=== PATIENT | female | born 1995 ===

== ENCOUNTER 2018-01-01 18:52 | Outpatient (REF) | payer BC, SELFPAY ==
--- NOTE | 2018-01-01 09:25 | PAPFT_PTH ---
PATIENT: RONALD HANEY LOC: [facility]#:[id number] AGE/SX: 22/F ROOM: RE01/01/[address]: Brittney Dobbs : 1995 BED: DIS: 01/01/2018 SPEC #: [id number] RECD: 01/02/18 12:54 STATUS: SHIRA RETrenton #: [id number] PATEL: 01/01/18 09:[address]: Brittney Dobbs DEPT: [facility] Cytology RECD BY: Kimberlee Malik Tissues: 1 - CX/ENDOCX FOR PAP SMEARS Procedures: PAP THIN PREP/UVM Screening Comments: [id number]
[2018-01-03 13:45] LABS: Chlamydia Result Negative; GC Result Negative; Specimen Description CERVICAL
== END 2018-01-01 19:12 ==
LOC: NCHCN 18:52
PROVIDERS: Visit Provider Nurse Practitioner Family
DX: Z00.00 Encounter for general adult medical examination without abnormal findings (principal); Z12.4 Encounter for screening for malignant neoplasm of cervix; Z11.3 Encounter for screening for infections with a predominantly sexual mode of transmission; F41.9 Anxiety disorder, unspecified
CPT/HCPCS: 87491; 87591; 88142

== ENCOUNTER 2019-09-12 17:26 | Emergency (ER) | payer BC, SELFPAY ==
[2019-09-12 17:35] VITALS: BP 132/84; PULSE 68; RESP 16; TEMP 36.6; O2SAT 100
--- NOTE | 2019-09-12 18:22 | W.ED.GENAD ---
Discharge Plan Disposition Patient Disposition: HOME Condition: Stable Discharge Details Chief Complaint: EyeProblem Clinical Impression: Corneal abrasion, left Primary Care Provider: Reg Aviles ED Provider: Anastasiia Irene Home Meds and New Rx's Prescriptions: No Action No Known Home Meds RF: 0 Discharge Instructions Instructions: Corneal Abrasion (ED) Additional Instructions: Apply 1/2 inch ribbon of erythromycin ointment 4 times daily to the left eye for the next 6 days. Alternate tylenol and motrin as needed and directed for pain. Call [facility] at [phone] on Saturday to schedule follow-up appointment for reevaluation. Return to the emergency department at any time if you develop any blurry vision, worsening pain or any other concerns. Discharge Data Discharge Date/Time-TO BE ENTERED AT DEPARTURE: 09/12/19 18:40 Discharge Physician: Anastasiia Irene Medical Decision Making 24-year-old female presents with left eye pain, irritation and foreign body sensation after working on a car at home just prior to arrival. Thinks it may be a piece of dirt, dust or metal. Left eye injected and tearing. No obvious foreign body noted. Corneal abrasion noted at 12 o'clock position in addition to faint fluorescein uptake surrounding most of the cornea except for right lower quadrant. No obvious foreign body noted with full inspection including slit-lamp and eyelid eversion. Tetanus given. L eye flushed with BSS. Erythromycin ointment applied. Patient given erythromycin for home. She is advised to call [facility] Saturday for follow-up. Usual and customary return precautions given prior to discharge. Medical Records Medical records reviewed: Yes I reviewed the patient's medical records. HPI General Mode of arrival: ambulatory. Date/Time Provider Initiated Documentation: 09/12/19 17:42. Limitations to Documentation: no limitations. Information obtained by: patient. HPI Narrative: Pt is a 24yo F who presents to the ED w/ a c/o L eye pain and irritation that started when she was working on a car at home. She thinks she got some dust or dirt in her eye. She attempted to flush with water. She is unsure of her tetanus status. She denies blurry vision, photophobia, headache, dizziness. She does not wear contacts. Related Data Home Medications Medication Instructions Recorded Confirmed Unknown [No Known Home Meds] 09/12/19 09/12/19 Allergies Allergy/AdvReac Type Severity Reaction Status Date / Time No Known Allergies Allergy Unverified 09/12/19 17:35 General Stated Complaint: EyeProblem FRANKO: 4 Review of Systems All systems reviewed & are unremarkable except as noted in HPI and below Constitutional Constitutional: Reports as per HPI, Denies chills and Denies fever(s) Eyes Eyes: Denies blurry vision, Denies diplopia, Denies eye discharge, Reports eye pain and Reports other (foreign body sensation) ENT Ears, Nose, Mouth, and Throat: Denies dizziness, Denies sore throat and Denies throat swelling Cardiovascular Cardiovascular: Denies chest pain and Denies dyspnea Respiratory Respiratory: Denies cough and Denies dyspnea Gastrointestinal Gastrointestinal: Denies abdominal pain, Denies diarrhea and Denies vomiting Genitourinary Genitourinary: Denies hematuria and Denies dysuria Musculoskeletal Musculoskeletal: Denies back pain and Denies numbness Integumentary/Breasts Skin/Breast: Denies lesions and Denies rash Neurologic Neurologic: Denies dizziness, Denies localized weakness and Denies numbness Allergic/Immunologic Allergic/Immunologic: Denies throat swelling [facility] Medical History (Updated 09/12/19 @ 18:28 by Anastasiia Irene DO) No significant past medical history (Acute) Social History Smoking/Tobacco Use Status: Current-Occasional Alcohol Intake: current Alcohol Intake frequency: a few times a week Drug use: Never Substance use type: does not use Do you feel safe at home: Yes Do you feel safe in your relationship?: Yes Exam Const General: cooperative, healthy appearing and no acute distress [facility] Head: normal to inspection Mouth: oral mucosae normal Eyes Periorbital: periorbital findings normal Eyelids: eyelids normal Conjunctivae: conjunctival abnormality left conjunctival injection diffuse; without discharge Cornea: corneas abnormal on the left abrasion at the following clock position (12 ) and other (faint uptake of fluorescein noted extending downward from abrasion to most of cornea except R lower corner) Pupils: PERRL EOM: EOM intact bilaterally Other: No obvious foreign body noted with inspection including eyelid eversion. Neck Neck: normal visual inspection Resp Effort & Inspection: normal respiratory effort and able to speak in complete sentences Cardio Rate: regular rate Skin General skin exam: no rashes or lesions noted Neuro General: patient alert, patient awake and patient oriented x3 Motor: muscle tone normal throughout Extrem General: normal to inspection and full ROM Psych Appearance: grossly normal Affect: normal affect Course Vital Signs Vital signs: Vital Signs Temperature 97.9 F 09/12/19 17:35 Pulse 68 09/12/19 17:35 Respiratory Rate 16 09/12/19 17:35 Blood Pressure 132/84 09/12/19 17:35 Pulse Oximetry 100 09/12/19 17:35 Temperature 97.9 F 09/12/19 17:35 Temperature Source Temporal Artery Scan 09/12/19 17:35 Pulse 68 09/12/19 17:35 Respiratory Rate 16 09/12/19 17:35 Respiratory Effort Non-Labored 09/12/19 17:39 Blood Pressure 132/84 09/12/19 17:35 Blood Pressure Position Sitting 09/12/19 17:35 Pulse Oximetry 100 09/12/19 17:35 Oxygen Delivery Method Room Air 09/12/19 17:35 Oxygen Flow Rate 0 09/12/19 17:35 Pain Level 6 09/12/19 17:35
[2019-09-12] MEDS: Balanced Salt Solution 15 ML BTL (18:25)
[2019-09-12] MEDS: Tetracaine 0.5% 4 ML BTL (18:26)
[2019-09-12] MEDS: Fluorescein STRIPS 100/BOX 1 MG (18:26)
[2019-09-12] MEDS: Erythromycin Ophth Oint 3.5 GM TUBE OU (18:30)
== END 2019-09-12 18:40 | disposition home or self-care (01) ==
PROVIDERS: Emergency Provider Physician Assistant; PCP Nurse Practitioner Family
DX: S05.02XA Injury of conjunctiva and corneal abrasion without foreign body, left eye, initial encounter (principal); X58.XXXA Exposure to other specified factors, initial encounter
CPT/HCPCS: 90471; 99284; 99283